=== PATIENT | female | born 1950 | race Caucasian/White ===

== ENCOUNTER → 2025-02-12 09:40 | Outpatient (REF) | payer OTHER, SELFPAY | LOC: RAD 09:40 | PROVIDERS: ATTENDING PHYSICIAN Internal Medicine Clinical Cardiac Electrophysiology; FAMILY PHYSICIAN Student in an Organized Health Care Education/Training Program | DX: R07.89 Other chest pain (principal); R06.09 Other forms of dyspnea; Z01.810 Encounter for preprocedural cardiovascular examination; Z95.818 Presence of other cardiac implants and grafts; D68.59 Other primary thrombophilia; N18.9 Chronic kidney disease, unspecified; E78.2 Mixed hyperlipidemia; I10 Essential (primary) hypertension; K21.9 Gastro-esophageal reflux disease without esophagitis; R55 Syncope and collapse | CPT/HCPCS: 75574; Q9967 ==